=== PATIENT | female | born 1965 | race African-American/Black ===

== ENCOUNTER 2016-06-21 22:10 | Emergency (ER) | payer OTHER ==
[~2016-06-21] VITALS: Ht 139.7 cm; Wt 55.0 kg
[~2016-06-21 22:10] MED LIST: BENT20TA PO; CYCL-36 PO; DICL75 PO; FE T325T PO; IBUP800T23 PO; MULT-65 PO; ONDA4 PO; PRED50 PO
[2016-06-21 22:51] VITALS: BP_SYST 142; PULSE 78; RESP 16; TEMP 98.6; O2SAT 98
[2016-06-21] MEDS ORDERED: CYCL1TAB29 PO (23:22)
[2016-06-21] MEDS ORDERED: MULTTAB67 PO (23:22)
[2016-06-21] MEDS ORDERED: FERR325T PO (23:22)
[2016-06-21] MEDS ORDERED: DICL75TA PO (23:48)
--- NOTE | 2016-06-21 23:56 | PD ---
HPI Chief Complaint: Pain: Acute or Chronic Time Seen by Provider: 23:48 Travel History International Travel<30 days: No Contact w/Intl Traveler<30days: No Traveled to known affect area: No History of Present Illness HPI 51-year-old black female presents to emergency department with complains of left knee pain. She states that she had a injury to her left knee last month. She was seen in the emergency department and had x-rays performed. She was advised that she needed to follow up with her primary care doctor and possibly have further imaging studies to rule out internal derangement. She states that she never followed up. She went out of town and just got back here recently. She still having pain in her left knee presents to the ER. She states the pain is worse with ambulation. Some relief with elevation. Pain is mild-to- moderate. PFSH Past Medical History Hx Anticoagulant Therapy: No Anemia: Yes Arthritis: Yes Asthma: No Blood Disorders: No Bipolar Disorder: Yes Heart Rhythm Problems: No Cancer: No Cardiovascular Problems: No High Cholesterol: No Chemotherapy: No Congestive Heart Failure: No Cerebrovascular Accident: No Diabetes: No Diminished Hearing: No Endocrine: No Gastrointestinal Disorders: Yes GERD: Yes Genitourinary: No Headaches: Yes Hepatitis: No Hiatal Hernia: No Hypertension: No Immune Disorder: No Implanted Vascular Access Dvce: No Kidney Stones: No Musculoskeletal: Yes Neurologic: Yes Psychiatric: No Reproductive: No Respiratory: No Migraines: No Myocardial Infarction: No Radiation Therapy: No Renal Failure: No Seizures: No Ulcer: No Influenza Vaccination: No ?: Not Menopausal: No : 2 Para: 2 Past Surgical History Abdominal Surgery: No AICD: No Appendectomy: No Arteriovenous Shunt: No Cardiac Surgery: No Section: Yes (x2) Cholecystectomy: No Ear Surgery: No Endocrine Surgery: No Eye Surgery: No Genitourinary Surgery: No Gynecologic Surgery: Yes () Hysterectomy: No Insulin Pump: No Joint Replacement: No Neurologic Surgery: No Oral Surgery: No Pacemaker: No Thoracic Surgery: No Tonsillectomy: Yes Other Surgery: No Social History Alcohol Use: Yes (occassionally) Tobacco Use: No Substance Use: No Allergies-Medications (Allergen,Severity, Reaction): Coded Allergies: Penicillin (Verified Allergy, Severe, RASH, 06/21/16) Iodine (Verified Allergy, Intermediate, RASH, 06/21/16) Sulfa (Verified Allergy, Intermediate, RASH, 06/21/16) Promethazine (Verified Adverse Reaction, Severe, Arrhythmias, 06/21/16) 3 PRIOR TRIPS TO ED WITH PALPATATIONS AFTER TAKING MED Codeine (Verified Adverse Reaction, Intermediate, NAUSEA, 06/21/16) Reported Meds & Prescriptions Reported Meds & Active Scripts Active Reported Multiple Vitamin 1 Tab 1 Tab PO DAILY Ferrous Sulfate 325 Mg Tab 325 Mg PO DAILY Flexeril (Cyclobenzaprine HCl) 10 Mg Tab 10 Mg PO TID Review of Systems Except as stated in HPI: all other systems reviewed are Neg Physical Exam Narrative GENERAL: This is a well-nourished, well-developed patient, in no apparent distress. SKIN: No rashes, ecchymoses or lesions. Warm and dry. HEAD: Atraumatic. Normocephalic. EYES: PERRL, EOMI, no discharge or injection. No scleral icterus. EARS: Clear NOSE: Nasal turbinates appear normal. THROAT: Mucosa pink and moist. Airway patent. NECK: Trachea midline. supple, moves head freely. LUNGS: Clear to auscultation. CV: Regular in rhythm. ABDOMEN: Soft nontender. EXT: No clubbing cyanosis or edema. Examination of the left lower extremity reveals mild swelling and inflammatory changes to the knee. There is no anterior posterior draw. There is no gross instability to the medial lateral collateral ligaments. She does complain of pain with testing. Positive meniscal pain with testing. She has intact sensation with good distal pulses. No pain in the hip, ankle or foot. She has no bony tenderness in the right lower extremity as well as upper extremities. Data Data Last Documented VS Vital Signs Date Time Temp Pulse Resp B/P Pulse Ox O2 Delivery O2 Flow Rate FiO2 06/21/16 22:51 98.6 78 16 142/ 98 MDM Medical Decision Making Medical Screen Exam Complete: Yes Emergency Medical Condition: Yes Medical Record Reviewed: Yes Differential Diagnosis MDM: High Differential diagnoses: Fracture, sprain, strain, dislocation, contusion, neurovascular injury Narrative Course I have reviewed the patient's last ER visit as well as her x-ray. There is no acute bony injury. The patient is given another prescription for diclofenac. This is left knee pain Diagnosis Primary Impression: Left knee pain Qualified Code: M25.562 - Chronic pain of left knee Patient Instructions: General Instructions Additional Instructions: Rest. Elevation. Ice for any acute swelling and pain. Medications as directed Follow-up with the clinic this week. Return to the ER if any problems Med/Other Pt SpecificInfo: Prescription(s) given Scripts Diclofenac Sodium DR 75 Mg Tabdr75 Mg PO BID #20 TAB Prov:Mark Anthony Loving MD 06/21/16 Disposition: 01 DISCHARGE HOME Condition: Stable Matias Jay Jun 21, 2016 23:56
[2016-07-05] MEDS ORDERED: FERR325T PO (15:36)
[2016-07-05] MEDS ORDERED: DICL75TA PO (15:36)
[2016-07-05] MEDS ORDERED: CYCL1TAB29 PO (15:36)
[2016-09-06] MEDS ORDERED: KETO60IN6 IM (09:40)
== END 2016-06-22 00:37 | disposition home or self-care (01) ==
LOC: NEPB 22:10
DX: M25.562 Pain in left knee (principal); M19.90 Unspecified osteoarthritis, unspecified site
CPT/HCPCS: 99283

== ENCOUNTER → 2016-07-13 | Outpatient (CLI) | payer OTHER ==
[~2016-07-13] MED LIST changes: -BENT20TA PO; -CYCL-36 PO; +CYCL1TAB29 PO; +CYCL5TAB PO; -DICL75 PO; +DICL75TA PO; -FE T325T PO; +FERR325T PO; -IBUP800T23 PO; +KETO60IN6 IM; -MULT-65 PO; +MULTTAB67 PO; -ONDA4 PO; -PRED50 PO
--- NOTE | 2016-07-13 15:38 | RADRPT ---
EXAM DATE/TIME: 07/13/2016 14:30 [facility] COMPARISON: CT ABDOMEN & PELVIS W CONTRAST, December 07, 2012, 16:06. CT ABDOMEN & PELVIS W/O CONTRAST, July 16, 2015, 20:59. US ABDOMEN - LIVER, May 29, 2013, 10:33. INDICATIONS : Mass, venous malformation. MEDICAL HISTORY : Gastroesophageal reflux disease. Osteoarthritis. Venous malformation in liver, stable since 2005. B ipolar disorder. Anemia. SURGICAL HISTORY : Tonsillectomy. Tubal ligation. section. ENCOUNTER: Subsequent ACUITY: 1 day PAIN SCORE: 0/10 LOCATION: Abdomen. MEASUREMENTS: LIVER: 11.1 cm length COMMON DUCT: 6 mm RIGHT KIDNEY: 9.6 x 4.6 x 5.2 cm SPLEEN: 7.2 cm length FINDINGS: There is stable hemangioma in the dome of the liver unchanged from 2016. This measures 3.3 x 2.3 CM. The gallbladder and visualized portion of the pancreas are unremarkable. No free fluid is identified. CONCLUSION: 1. No evidence of cholelithiasis. 2. Stable hemangioma in the dome of the liver Andrew Ordonez MD on July 13, 2016 at 15:34 Board Certified Radiologist. This report was verified electronically.
== END ==
LOC: HRAD 14:18
PROVIDERS: ATTEND Family Medicine
DX: Q27.9 Congenital malformation of peripheral vascular system, unspecified (principal)
CPT/HCPCS: 76705

== ENCOUNTER → 2016-07-28 | Outpatient (CLI) | payer OTHER ==
[2016-07-28 14:38] LABS: AUTOMATED NEUTROPHIL # 4.3 TH/MM3 (1.8-7.7); BASOPHIL % 0.6 % (0.0-2.0); EOSINOPHIL # 0.3 TH/MM3 (0-0.4); HEMATOCRIT 31.1 % (35.0-46.0); HEMO FLAGS DIFF FINAL; LYMPH % 24.3 % (9.0-44.0); LYMPHOCYTE # 1.7 TH/MM3 (1.0-4.8); MEAN CELL VOLUME 82.7 FL (80.0-100.0); MEAN CORPUSCULAR HEMOGLOBIN 27.3 PG (27.0-34.0); MONO % 8.5 % (0.0-8.0); NEUT % 62.6 % (16.0-70.0); PLATELET COUNT 265 TH/MM3 (150-450); RED BLOOD COUNT 3.76 MIL/MM3 (4.00-5.30); RED CELL DISTRIBUTION WIDTH 19.8 % (11.6-17.2); WHITE BLOOD COUNT 6.9 TH/MM3 (4.0-11.0)
== END ==
LOC: CLAB 14:05
PROVIDERS: ATTEND Family Medicine
DX: N95.0 Postmenopausal bleeding (principal)
CPT/HCPCS: 36415; 85025

== ENCOUNTER 2016-09-04 13:58 | Emergency (ER) | payer OTHER ==
[~2016-09-04] VITALS: Ht 139.7 cm; Wt 56.5 kg
[~2016-09-04 13:58] MED LIST changes: -CYCL5TAB PO; -KETO60IN6 IM
[2016-09-04 13:59] VITALS: BP 137/66; PULSE 78; RESP 20; TEMP 98.1; O2SAT 98
--- NOTE | 2016-09-04 18:35 | PD ---
HPI . chest pain for 3 days Chief Complaint: Chest Pain Time Seen by Provider: 18:35 Travel History International Travel<30 days: No Contact w/Intl Traveler<30days: No Traveled to known affect area: No History of Present Illness HPI 51-year-old female with history of chronic back pain and neck pain here with complaints of chest pain for 3 days. Patient says she has had a sharp pain under her left breast that has been constant for the past 3 days. Patient rates the pain as 9/10 without any radiation elsewhere. She denies lifting any heavy objects or overuse of the left extremity. She denies any nausea, vomiting , diaphoresis or shortness of breath. She has not tried any medications to improve her symptoms. She decided to come to the emergency department for further evaluation. She follows up with Dr. Middleton in the community clinic, however missed her most recent appointment that was scheduled in August. PFSH Past Medical History Hx Anticoagulant Therapy: No Anemia: Yes Arthritis: Yes Asthma: No Blood Disorders: No Bipolar Disorder: Yes Heart Rhythm Problems: No Cancer: No Cardiovascular Problems: No High Cholesterol: No Chemotherapy: No Congestive Heart Failure: No Cerebrovascular Accident: No Diabetes: No Diminished Hearing: No Endocrine: No Gastrointestinal Disorders: Yes GERD: Yes Genitourinary: No Headaches: Yes Hepatitis: No Hiatal Hernia: No Hypertension: No Immune Disorder: No Implanted Vascular Access Dvce: No Kidney Stones: No Musculoskeletal: Yes Neurologic: Yes Psychiatric: No Reproductive: No Respiratory: No Migraines: No Myocardial Infarction: No Radiation Therapy: No Renal Failure: No Seizures: No Ulcer: No ?: Not Menopausal: No : 2 Para: 2 Past Surgical History Abdominal Surgery: No AICD: No Appendectomy: No Arteriovenous Shunt: No Cardiac Surgery: No Section: Yes (x2) Cholecystectomy: No Ear Surgery: No Endocrine Surgery: No Eye Surgery: No Genitourinary Surgery: No Gynecologic Surgery: Yes () Hysterectomy: No Insulin Pump: No Joint Replacement: No Neurologic Surgery: No Oral Surgery: No Pacemaker: No Thoracic Surgery: No Tonsillectomy: Yes Other Surgery: No Family History Family Myocardial Infarction: Yes Family Hypercholesterolemia: Yes Social History Alcohol Use: Yes (occassionally) Tobacco Use: No Substance Use: No Allergies-Medications (Allergen,Severity, Reaction): Coded Allergies: Penicillin (Verified Allergy, Severe, RASH, 09/04/16) Iodine (Verified Allergy, Intermediate, RASH, 09/04/16) Sulfa (Verified Allergy, Intermediate, RASH, 09/04/16) Promethazine (Verified Adverse Reaction, Severe, Arrhythmias, 09/04/16) 3 PRIOR TRIPS TO ED WITH PALPATATIONS AFTER TAKING MED Codeine (Verified Adverse Reaction, Intermediate, NAUSEA, 09/04/16) Reported Meds & Prescriptions Reported Meds & Active Scripts Active Ferrous Sulfate 325 Mg Tab 325 Mg PO DAILY Reported Multiple Vitamin 1 Tab 1 Tab PO DAILY Review of Systems General / Constitutional: No: Fever Eyes: No: Visual changes HENT: No: Headaches Cardiovascular: Positive: Chest Pain or Discomfort Respiratory: No: Shortness of Breath Gastrointestinal: No: Abdominal Pain Genitourinary: No: Dysuria Musculoskeletal: No: Pain Skin: No Rash Neurologic: No: Weakness Psychiatric: No: Depression Endocrine: No: Polydipsia Hematologic/Lymphatic: No: Easy Bruising Physical Exam Narrative GENERAL: AAO x 3, no acute distress, Well-nourished, well-developed patient. SKIN: Warm and dry. No visible rashes or bruising. HEAD: Normocephalic and atraumatic. EYES: No scleral icterus. No injection or drainage. ENT: No nasal drainage noted. Mucous membranes pink. Airway patent. NECK: Supple, trachea midline. No JVD. CARDIOVASCULAR: Regular rate and rhythm without murmurs, gallops, or rubs. RESPIRATORY: Breath sounds equal bilaterally. No accessory muscle use. No rhonchi or rales. Reproducible chest pain under left breast with palpation. GASTROINTESTINAL: Abdomen soft, non-tender, nondistended. EXTREMITIES: No cyanosis or edema. BACK: Nontender without obvious deformity. No CVA tenderness. PSYCH: AAO x 3, normal affect. Data Data Last Documented VS Vital Signs Date Time Temp Pulse Resp B/P Pulse Ox O2 Delivery O2 Flow Rate FiO2 09/04/16 19:42 68 17 111/57 100 Room Air 09/04/16 13:59 98.1 Orders Electrocardiogram (09/04/16 ) Electrocardiogram (09/04/16 18:43) Basic Metabolic Panel (Bmp) (09/04/16 18:43) Ckmb (Isoenzyme) Profile (09/04/16 18:43) Complete Blood Count With Diff (09/04/16 18:43) Magnesium (Mg) (09/04/16 18:43) Prothrombin Time / Inr (Pt) (09/04/16 18:43) Act Partial Throm Time (Ptt) (09/04/16 18:43) Troponin I (09/04/16 18:43) Chest, Single Ap (09/04/16 18:43) Ecg Monitoring (09/04/16 18:43) Bilateral Bp Monitoring (09/04/16 18:43) Iv Access Insert/Monitor (09/04/16 18:43) Oximetry (09/04/16 18:43) Oxygen Administration (09/04/16 18:43) Sodium Chloride 0.9% Flush (Ns Flush) (09/04/16 18:45) CKMB (09/04/16 20:06) CKMB% (09/04/16 20:06) Labs Laboratory Tests Test 09/04/16 09/04/16 18:19 20:06 White Blood Count 12.7 TH/MM3 Red Blood Count 3.96 MIL/MM3 Hemoglobin 11.0 GM/DL Hematocrit 32.9 % Mean Corpuscular Volume 83.1 FL Mean Corpuscular Hemoglobin 27.8 PG Mean Corpuscular Hemoglobin 33.5 % Concent Red Cell Distribution Width 19.2 % Platelet Count 252 TH/MM3 Mean Platelet Volume 9.2 FL Neutrophils (%) (Auto) 69.4 % Lymphocytes (%) (Auto) 20.2 % Monocytes (%) (Auto) 7.1 % Eosinophils (%) (Auto) 2.7 % Basophils (%) (Auto) 0.6 % Neutrophils # (Auto) 8.8 TH/MM3 Lymphocytes # (Auto) 2.6 TH/MM3 Monocytes # (Auto) 0.9 TH/MM3 Eosinophils # (Auto) 0.3 TH/MM3 Basophils # (Auto) 0.1 TH/MM3 CBC Comment DIFF FINAL Differential Comment Prothrombin Time 10.7 SEC Prothromb Time International 1.0 RATIO Ratio Activated Partial 24.7 SEC Thromboplast Time Sodium Level 137 MEQ/L Potassium Level 5.2 MEQ/L Chloride Level 103 MEQ/L Carbon Dioxide Level 24.2 MEQ/L Anion Gap 10 MEQ/L Blood Urea Nitrogen 10 MG/DL Creatinine 0.58 MG/DL Estimat Glomerular Filtration 133 ML/MIN Rate Random Glucose 74 MG/DL Calcium Level 9.9 MG/DL Magnesium Level 1.7 MG/DL Total Creatine Kinase 186 U/L Creatine Kinase MB LESS THAN 0.5 NG/ML Troponin I LESS THAN 0.02 NG/ML MDM Medical Decision Making Medical Screen Exam Complete: Yes Emergency Medical Condition: Yes Medical Record Reviewed: Yes Differential Diagnosis musculoskeletal pain, R/O ACS, Narrative Course 51-year-old female with history of chronic back pain and neck pain here with complaints of chest pain for 3 days. Patient says she has had a sharp pain under her left breast that has been constant for the past 3 days. Patient rates the pain as 9/10 without any radiation elsewhere. She denies lifting any heavy objects or overuse of the left extremity. She denies any nausea, vomiting , diaphoresis or shortness of breath. She has not tried any medications to improve her symptoms. She decided to come to the emergency department for further evaluation. She follows up with Dr. Middleton in the community clinic, however missed her most recent appointment that was scheduled in August. Patient seen and examined. Case discussed with Dr. Dutton. Recommend ACS R/O although I feel this is muscular in nature. EKG with Sinus parminder. Last 24 hours Impressions Chest X-Ray 09/04/16 6903 Signed Impressions: Service Date/Time: Sunday, September 04, 2016 18:59 - CONCLUSION: 1. No acute findings. [id number] dextroscoliosis. Matias Schneider MD Laboratory Tests Test 09/04/16 09/04/16 18:19 20:06 White Blood Count 12.7 TH/MM3 Red Blood Count 3.96 MIL/MM3 Hemoglobin 11.0 GM/DL Hematocrit 32.9 % Mean Corpuscular Volume 83.1 FL Mean Corpuscular Hemoglobin 27.8 PG Mean Corpuscular Hemoglobin 33.5 % Concent Red Cell Distribution Width 19.2 % Platelet Count 252 TH/MM3 Mean Platelet Volume 9.2 FL Neutrophils (%) (Auto) 69.4 % Lymphocytes (%) (Auto) 20.2 % Monocytes (%) (Auto) 7.1 % Eosinophils (%) (Auto) 2.7 % Basophils (%) (Auto) 0.6 % Neutrophils # (Auto) 8.8 TH/MM3 Lymphocytes # (Auto) 2.6 TH/MM3 Monocytes # (Auto) 0.9 TH/MM3 Eosinophils # (Auto) 0.3 TH/MM3 Basophils # (Auto) 0.1 TH/MM3 CBC Comment DIFF FINAL Differential Comment Prothrombin Time 10.7 SEC Prothromb Time International 1.0 RATIO Ratio Activated Partial 24.7 SEC Thromboplast Time Sodium Level 137 MEQ/L Potassium Level 5.2 MEQ/L Chloride Level 103 MEQ/L Carbon Dioxide Level 24.2 MEQ/L Anion Gap 10 MEQ/L Blood Urea Nitrogen 10 MG/DL Creatinine 0.58 MG/DL Estimat Glomerular Filtration 133 ML/MIN Rate Random Glucose 74 MG/DL Calcium Level 9.9 MG/DL Magnesium Level 1.7 MG/DL Total Creatine Kinase 186 U/L Creatine Kinase MB LESS THAN 0.5 NG/ML Troponin I LESS THAN 0.02 NG/ML Discussed with patient that she will need to f/u with Dr. Middleton this week. She will need repeat CBC for elevated WBC. Will discharge home with a short course of muscle relaxers to see if they help her symptoms. Advised if condition worsens, to go to nearest ER. Patient verbalized understanding of instructions and thanked me for her care. Diagnosis Primary Impression: Chest pain Qualified Code: R07.9 - Chest pain, unspecified type Additional Impression: Muscle strain Patient Instructions: Chest Pain (ED), General Instructions, Muscle Strain (ED) Additional Instructions: Please follow up with Dr. Middleton this week. She will need to repeat your blood tests. I have provided you with muscle relaxers as it seems your pain in more muscular in nature. Muscle relaxers can cause drowsiness. Please do not drive, swim or operate heavy machinery while using these medicines. Take ibuprofen as needed for pain. Med/Other Pt SpecificInfo: Prescription(s) given Scripts Cyclobenzaprine (Flexeril)5 Mg Tab5 Mg PO TID #20 TAB Ref 0 Prov:Tyson Bean MD 09/04/16 Disposition: 01 DISCHARGE HOME Condition: Stable CompaMira PA Sep 04, 2016 18:35
[2016-09-04] MEDS ORDERED: SODIUM CHLORIDE 0.9% FLUSH 10 ML FLUSH IVF PRN (18:45)
[2016-09-04 19:38] VITALS: O2SAT 100
--- NOTE | 2016-09-04 19:39 | RADRPT ---
EXAM DATE/TIME: 09/04/2016 18:59 [facility] COMPARISON: CHEST SINGLE AP, August 06, 2015, 13:24. INDICATIONS : Chest pain. MEDICAL HISTORY : None. SURGICAL HISTORY : None. ENCOUNTER: Initial ACUITY: 3 days PAIN SCORE: 5/10 LOCATION: Bilateral chest FINDINGS: A single view of the chest demonstrates the lungs to be symmetrically aerated without evidence of mas s, infiltrate or effusion. The cardiomediastinal contours are unremarkable. Osseous structures are intact with scoliosis. CONCLUSION: 1. No acute findings. [id number] dextroscoliosis. Matias Schneider MD on September 04, 2016 at 19:37 Board Certified Radiologist. This report was verified electronically.
[2016-09-04 19:42] VITALS: BP 111/57; PULSE 68; RESP 17; O2SAT 100
[2016-09-04 19:42] LABS: AUTOMATED NEUTROPHIL # 8.8 TH/MM3 (1.8-7.7); BASOPHIL # 0.1 TH/MM3 (0-0.2); BASOPHIL % 0.6 % (0.0-2.0); EOSINOPHIL # 0.3 TH/MM3 (0-0.4); EOSINOPHIL % 2.7 % (0.0-4.0); HEMATOCRIT 32.9 % (35.0-46.0); HEMO FLAGS DIFF FINAL; LYMPH % 20.2 % (9.0-44.0); LYMPHOCYTE # 2.6 TH/MM3 (1.0-4.8); MEAN CELL VOLUME 83.1 FL (80.0-100.0); MEAN CORPUSCULAR HEMOGLOBIN 27.8 PG (27.0-34.0); MEAN CORPUSCULAR HGB CONC 33.5 % (32.0-36.0); MONO % 7.1 % (0.0-8.0); NEUT % 69.4 % (16.0-70.0); PLATELET COUNT 252 TH/MM3 (150-450); RED BLOOD COUNT 3.96 MIL/MM3 (4.00-5.30); RED CELL DISTRIBUTION WIDTH 19.2 % (11.6-17.2); WHITE BLOOD COUNT 12.7 TH/MM3 (4.0-11.0)
[2016-09-04 19:58] LABS: APTT (PATIENT) 24.7 SEC (24.3-30.1); PROTHROMBIN TIME - PATIENT 10.7 SEC (9.8-11.6)
[2016-09-04 21:01] LABS: BLOOD UREA NITROGEN 10 MG/DL (7-18); CHLORIDE 103 MEQ/L (98-107); GLOMERULAR FILTRATION RATE 133 ML/MIN (>89); MAGNESIUM 1.7 MG/DL (1.5-2.5); SODIUM (NA) 137 MEQ/L (136-145)
[2016-09-04 21:03] LABS: CREATINE KINASE 186 U/L (26-192)
[2016-09-04 21:06] LABS: ANION GAP 10 MEQ/L (5-15); BICARBONATE 24.2 MEQ/L (21.0-32.0); POTASSIUM 5.2 MEQ/L (3.5-5.1)
[2016-09-04 21:15] LABS: CKMB LESS THAN 0.5 NG/ML (0.5-3.6)
[2016-09-04] MEDS ORDERED: CYCL5TAB PO (21:34)
--- NOTE | 2016-09-05 18:27 | EKG ---
Date Performed: 09/04/2016 Time Performed: 14:43:50 PTAGE: 51 years EKG: SINUS BRADYCARDIA NONSPECIFIC T-WAVE ABNORMALITY T wave abnormalities are more prominant th an prior tracing. Clinical corrolation is suggested. BORDERLINE ECG PREVIOUS TRACING : 09/22/2013 22.42 DOCTOR: Scott Armas Interpretating Date/Time 09/05/2016 18:25:17
[2016-09-06] MEDS ORDERED: KETO60IN6 IM (09:40)
== END 2016-09-04 22:09 | disposition home or self-care (01) ==
LOC: NEPC 13:58
DX: R07.9 Chest pain, unspecified (principal); S29.011A Strain of muscle and tendon of front wall of thorax, initial encounter; R94.31 Abnormal electrocardiogram [ECG] [EKG]; Z87.39 Personal history of other diseases of the musculoskeletal system and connective tissue; Z86.2 Personal history of diseases of the blood and blood-forming organs and certain disorders involving the immune mechanism; Z86.59 Personal history of other mental and behavioral disorders; Z87.19 Personal history of other diseases of the digestive system; Z86.69 Personal history of other diseases of the nervous system and sense organs; X58.XXXA Exposure to other specified factors, initial encounter
CPT/HCPCS: 71010; 80048; 82550; 82552; 83735; 84484; 85025; 85610; 85730; 93005

== ENCOUNTER → 2016-09-06 | Outpatient (CLI) | payer OTHER ==
[~2016-09-06] MED LIST changes: -CYCL1TAB29 PO; +CYCL5TAB PO; -DICL75TA PO; +KETO60IN6 IM
[2016-09-06 10:46] LABS: BASOPHIL % 0.5 % (0.0-2.0); EOSINOPHIL # 0.3 TH/MM3 (0-0.4); HEMATOCRIT 33.2 % (35.0-46.0); HEMO FLAGS DIFF FINAL; LYMPH % 14.9 % (9.0-44.0); LYMPHOCYTE # 1.6 TH/MM3 (1.0-4.8); MEAN CELL VOLUME 84.4 FL (80.0-100.0); MEAN CORPUSCULAR HEMOGLOBIN 27.1 PG (27.0-34.0); MEAN CORPUSCULAR HGB CONC 32.1 % (32.0-36.0); MONO % 8.8 % (0.0-8.0); NEUT % 72.8 % (16.0-70.0); PLATELET COUNT 243 TH/MM3 (150-450); RED BLOOD COUNT 3.94 MIL/MM3 (4.00-5.30); RED CELL DISTRIBUTION WIDTH 19.1 % (11.6-17.2); WHITE BLOOD COUNT 10.9 TH/MM3 (4.0-11.0)
[2016-09-06 10:56] LABS: BLOOD, URINE NEG (NEG); COMMENT (UR) CULT NOT INDICATED; CULTURE IF INDICATED CULT NOT INDICATED; GLUCOSE,URINE NEG (NEG); KETONE, URINE NEG (NEG); MUCUS URINE FEW /lpf (OCC); NITRITE,URINE NEG (NEG); SQUAMOUS EPITHELIAL CELL URINE 2 /hpf (0-5); URINE COLOR YELLOW (YELLW/STRAW)
== END ==
LOC: CLAB 10:19
PROVIDERS: ATTEND Family Medicine
DX: D72.829 Elevated white blood cell count, unspecified (principal); R07.9 Chest pain, unspecified
CPT/HCPCS: 36415; 81001; 85025

== ENCOUNTER 2016-10-29 12:37 | Emergency (ER) | payer OTHER ==
[~2016-10-29] VITALS: Ht 142.2 cm; Wt 57.0 kg
[~2016-10-29 12:37] MED LIST changes: -CYCL5TAB PO; -FERR325T PO; -KETO60IN6 IM
[2016-10-29 12:39] VITALS: BP 150/83; PULSE 90; RESP 20; TEMP 99.1; O2SAT 98
--- NOTE | 2016-10-29 13:04 | PD ---
HPI . chronic neck and back pain Chief Complaint: Back/ Neck Pain or Injury Time Seen by Provider: 13:04 Travel History International Travel<30 days: No Contact w/Intl Traveler<30days: No Traveled to known affect area: No History of Present Illness HPI This is a 51-year-old female with chronic neck and back pain. Patient is well- known to me from [facility]. She was previously my patient there and I've seen her on several occasions. Patient has a long- standing history of chronic back pain and neck pain. Of note she has records of radiology reports dating back to 2007 as well as 2009 stating that she has spondylolisthesis of the lower spine, degenerative disc disease of the cervical spine etc. She is here requesting pain medications for her chronic neck and back pain. She is a patient in the [facility] clinic. Unfortunately [facility] is unable to prescribe narcotic pain medication and she was hoping that we would be able to give her something for her pain. The is the same pain she has always had. There is no recent injury. PFSH Past Medical History Hx Anticoagulant Therapy: No Anemia: Yes Arthritis: Yes Asthma: No Blood Disorders: No Bipolar Disorder: Yes Heart Rhythm Problems: No Cancer: No Cardiovascular Problems: No High Cholesterol: No Chemotherapy: No Congestive Heart Failure: No Cerebrovascular Accident: No Diabetes: No Diminished Hearing: No Endocrine: No Gastrointestinal Disorders: Yes GERD: Yes Genitourinary: No Headaches: Yes Hepatitis: No Hiatal Hernia: No Hypertension: No Immune Disorder: No Implanted Vascular Access Dvce: No Kidney Stones: No Musculoskeletal: Yes Neurologic: Yes Psychiatric: No Reproductive: No Respiratory: No Migraines: No Myocardial Infarction: No Radiation Therapy: No Renal Failure: No Seizures: No Ulcer: No ?: Not LMP: 10/27/16 Menopausal: No : 2 Para: 2 Past Surgical History Abdominal Surgery: No AICD: No Appendectomy: No Arteriovenous Shunt: No Cardiac Surgery: No Section: Yes (x2) Cholecystectomy: No Ear Surgery: No Endocrine Surgery: No Eye Surgery: No Genitourinary Surgery: No Gynecologic Surgery: Yes () Hysterectomy: No Insulin Pump: No Joint Replacement: No Neurologic Surgery: No Oral Surgery: No Pacemaker: No Thoracic Surgery: No Tonsillectomy: Yes Other Surgery: No Family History Family Hypercholesterolemia: Yes Social History Alcohol Use: Yes (occassionally) Tobacco Use: No Substance Use: No Allergies-Medications (Allergen,Severity, Reaction): Coded Allergies: Penicillin (Verified Allergy, Severe, RASH, 10/18/16) Iodine (Verified Allergy, Intermediate, RASH, 10/18/16) Sulfa (Verified Allergy, Intermediate, RASH, 10/18/16) Flexeril (Verified Allergy, Mild, dizzy, 10/18/16) Promethazine (Verified Adverse Reaction, Severe, Arrhythmias, 10/18/16) 3 PRIOR TRIPS TO ED WITH PALPATATIONS AFTER TAKING MED Codeine (Verified Adverse Reaction, Intermediate, NAUSEA, 10/18/16) Reported Meds & Prescriptions Reported Meds & Active Scripts Active Reported Multiple Vitamin 1 Tab 1 Tab PO DAILY Review of Systems General / Constitutional: No: Fever Eyes: No: Visual changes HENT: No: Headaches Cardiovascular: No: Chest Pain or Discomfort Respiratory: No: Shortness of Breath Gastrointestinal: No: Abdominal Pain Genitourinary: No: Dysuria Musculoskeletal: Positive: Pain (neck and back pain) Skin: No Rash Neurologic: No: Weakness Psychiatric: No: Depression Endocrine: No: Polydipsia Hematologic/Lymphatic: No: Easy Bruising Physical Exam Narrative GENERAL: AAO x 3, no acute distress, Well-nourished, well-developed patient. SKIN: Warm and dry. No visible rashes or bruising. HEAD: Normocephalic and atraumatic. EYES: No scleral icterus. No injection or drainage. ENT: No nasal drainage noted. Mucous membranes pink. Airway patent. NECK: Supple, trachea midline. No JVD. No c spine process tenderness. CARDIOVASCULAR: Regular rate and rhythm without murmurs, gallops, or rubs. RESPIRATORY: Breath sounds equal bilaterally. No accessory muscle use. No rhonchi or rales. GASTROINTESTINAL: Abdomen soft, non-tender, nondistended. EXTREMITIES: No cyanosis or edema. BACK: Nontender without obvious deformity. No CVA tenderness. no spinal process tenderness. No paraspinal tenderness. FULL ROM b/l UE and LE. PSYCH: AAO x 3, normal affect. Data Data Last Documented VS Vital Signs Date Time Temp Pulse Resp B/P Pulse Ox O2 Delivery O2 Flow Rate FiO2 10/29/16 12:39 99.1 90 20 150/83 98 Room Air MDM Medical Decision Making Medical Screen Exam Complete: Yes Emergency Medical Condition: No Medical Record Reviewed: Yes Differential Diagnosis chronic neck and back pain, spondylolisthesis of L spine, drug seeking behavior Narrative Course This is a 51-year-old patient who is very well-known to me from the community clinic presenting with chronic complaints of neck and back pain. She is here requesting something stronger for pain. I've advised the patient that she will need to follow-up at Dr. Middleton. A medical screening exam was performed: At the time of evaluation the presenting medical condition was determined not to be of an emergent nature. The patient was given the option of receiving additional care, but declined. Patient was given options for additional community resources from which to obtain care. The Patient Has Been advised to seek medical attention for their presenting complaint. The patient has been advised to return to the ER at any time if an emergent condition develops. Diagnosis Primary Impression: Encounter for medical screening examination Condition: Stable Mira Chatman October 29, 2016 13:04
[2016-10-29] MEDS ORDERED: MIDAZOLAM HCL 5 MG/ML VIAL (1 ML) ONE (13:18)
== END 2016-10-29 13:21 | disposition left against medical advice (07) ==
LOC: NEPK 12:37
DX: M54.2 Cervicalgia (principal); G89.29 Other chronic pain
CPT/HCPCS: 99281; J2250

== ENCOUNTER 2017-02-23 11:38 | Emergency (ER) | payer OTHER ==
[~2017-02-23] VITALS: Ht 139.7 cm; Wt 58.0 kg
[2017-02-23 11:39] VITALS: BP 174/88; PULSE 76; RESP 20; TEMP 98.4; O2SAT 98
[2017-02-23 11:57] VITALS: BP 156/84; PULSE 72; RESP 21; O2SAT 94
[2017-02-23] MEDS ORDERED: SODIUM CHLOR 0.9% 1000 ML INJ 1,000 ML IV SCH (12:13)
--- NOTE | 2017-02-23 12:13 | PD ---
HPI Chief Complaint: Flank/Kidney Pain Time Seen by Provider: 12:11 Travel History International Travel<30 days: No Contact w/Intl Traveler<30days: No Traveled to known affect area: No History of Present Illness HPI 52 YO F presents to the ED for evaluation of 2 day history 02/19, constant left- sided abdominal and flank pain. Patient states the pain came on suddenly. No alleviating or exacerbating factors reported. She endorses mild nausea. She endorses loose stools over the last 3 or 4 days. She denies fever, chills, vomiting, dysuria, hematuria, vaginal discharge, vaginal odor. She does not take any medications. PFSH Past Medical History Hx Anticoagulant Therapy: No Anemia: Yes Arthritis: Yes Asthma: No Blood Disorders: No Bipolar Disorder: Yes Heart Rhythm Problems: No Cancer: No Cardiovascular Problems: No High Cholesterol: No Chemotherapy: No Congestive Heart Failure: No Cerebrovascular Accident: No Diabetes: No Diminished Hearing: No Endocrine: No Gastrointestinal Disorders: Yes GERD: Yes Genitourinary: No Headaches: Yes Hepatitis: No Hiatal Hernia: No Hypertension: No Immune Disorder: No Implanted Vascular Access Dvce: No Kidney Stones: No Musculoskeletal: Yes Neurologic: Yes Psychiatric: No Reproductive: No Respiratory: No Migraines: No Myocardial Infarction: No Radiation Therapy: No Renal Failure: No Seizures: No Ulcer: No ?: Not LMP: 02/11/17 Menopausal: No : 2 Para: 2 Past Surgical History Abdominal Surgery: No AICD: No Appendectomy: No Arteriovenous Shunt: No Cardiac Surgery: No Section: Yes (x2) Cholecystectomy: No Ear Surgery: No Endocrine Surgery: No Eye Surgery: No Genitourinary Surgery: No Gynecologic Surgery: Yes () Hysterectomy: No Insulin Pump: No Joint Replacement: No Neurologic Surgery: No Oral Surgery: No Pacemaker: No Thoracic Surgery: No Tonsillectomy: Yes Other Surgery: No Family History Family Hypercholesterolemia: Yes Social History Alcohol Use: Yes (occassionally) Tobacco Use: No Substance Use: No Allergies-Medications (Allergen,Severity, Reaction): Coded Allergies: penicillin G (Unverified Allergy, Severe, RASH, 02/23/17) Sulfa (Sulfonamide Antibiotics) (Unverified Allergy, Intermediate, RASH, ) iodine (Unverified Allergy, Intermediate, RASH, 02/23/17) potassium iodide (Unverified Allergy, Intermediate, RASH, 02/23/17) povidone-iodine (Unverified Allergy, Intermediate, RASH, 02/23/17) sodium iodide (Unverified Allergy, Intermediate, RASH, 02/23/17) sodium iodide (Unverified Allergy, Intermediate, RASH, 02/23/17) cyclobenzaprine (Unverified Allergy, Mild, dizzy, 02/23/17) promethazine (Unverified Adverse Reaction, Severe, Arrhythmias, 02/23/17) 3 PRIOR TRIPS TO ED WITH PALPATATIONS AFTER TAKING MED codeine (Unverified Adverse Reaction, Intermediate, NAUSEA, 02/23/17) Reported Meds & Prescriptions Reported Meds & Active Scripts Active Reported Multiple Vitamin 1 Tab 1 Tab PO DAILY Review of Systems Except as stated in HPI: all other systems reviewed are Neg Physical Exam Narrative GENERAL: Well-nourished, well-developed petite black female in no acute distress. SKIN: Focused skin assessment warm/dry. HEAD: Normocephalic. EYES: No scleral icterus. No injection or drainage. NECK: Supple, trachea midline. No JVD or lymphadenopathy. CARDIOVASCULAR: Regular rate and rhythm without murmurs, gallops, or rubs. RESPIRATORY: Breath sounds equal bilaterally. No accessory muscle use. GASTROINTESTINAL: Abdomen soft, nondistended. ++ Tender to palpation in the left upper and lower quadrants, left flank. Active bowel sounds. No palpable masses. MUSCULOSKELETAL: No cyanosis, or edema. BACK: Nontender without obvious deformity. + Left-sided CVA tenderness. Data Data Last Documented VS Vital Signs Date Time Temp Pulse Resp B/P (MAP) Pulse Ox O2 Delivery O2 Flow Rate FiO2 02/23/17 11:57 72 21 156/84 (108) 94 Room Air 02/23/17 11:39 98.4 Orders Orders Urinalysis - C+S If Indicated (02/23/17 11:53) Ed Urine Pregnancytest Poc (02/23/17 11:53) Complete Blood Count With Diff (02/23/17 12:13) Comprehensive Metabolic Panel (02/23/17 12:13) Lipase (02/23/17 12:13) Lactic Acid (02/23/17 12:13) Iv Access Insert/Monitor (02/23/17 12:13) Ecg Monitoring (02/23/17 12:13) Oximetry (02/23/17 12:13) Morphine Inj (Morphine Inj) (02/23/17 12:15) Ondansetron Inj (Zofran Inj) (02/23/17 12:15) Sodium Chlor 0.9% 1000 Ml Inj (Ns 1000 M (02/23/17 12:13) Sodium Chloride 0.9% Flush (Ns Flush) (02/23/17 12:15) Ct Abd/Pel W/O Iv Contrast (02/23/17 13:42) Morphine Inj (Morphine Inj) (02/23/17 13:45) Morphine Inj (Morphine Inj) (02/23/17 14:15) Labs Laboratory Tests Test 02/23/17 12:20 02/23/17 13:05 White Blood Count 7.3 TH/MM3 Red Blood Count 4.04 MIL/MM3 Hemoglobin 10.7 GM/DL Hematocrit 33.6 % Mean Corpuscular Volume 83.1 FL Mean Corpuscular Hemoglobin 26.6 PG Mean Corpuscular Hemoglobin Concent 32.0 % Red Cell Distribution Width 19.8 % Platelet Count 277 TH/MM3 Mean Platelet Volume 7.9 FL Neutrophils (%) (Auto) 69.2 % Lymphocytes (%) (Auto) 17.0 % Monocytes (%) (Auto) 9.8 % Eosinophils (%) (Auto) 3.7 % Basophils (%) (Auto) 0.3 % Neutrophils # (Auto) 5.1 TH/MM3 Lymphocytes # (Auto) 1.2 TH/MM3 Monocytes # (Auto) 0.7 TH/MM3 Eosinophils # (Auto) 0.3 TH/MM3 Basophils # (Auto) 0.0 TH/MM3 CBC Comment DIFF FINAL Differential Comment Blood Urea Nitrogen 7 MG/DL Creatinine 0.70 MG/DL Random Glucose 93 MG/DL Total Protein 7.3 GM/DL Albumin 3.6 GM/DL Calcium Level 9.4 MG/DL Alkaline Phosphatase 113 U/L Aspartate Amino Transf (AST/SGOT) 37 U/L Alanine Aminotransferase (ALT/SGPT) 19 U/L Total Bilirubin 1.5 MG/DL Sodium Level 140 MEQ/L Potassium Level 3.9 MEQ/L Chloride Level 107 MEQ/L Carbon Dioxide Level 27.2 MEQ/L Anion Gap 6 MEQ/L Estimat Glomerular Filtration Rate 106 ML/MIN Lactic Acid Level 1.0 mmol/L Lipase 108 U/L Urine Color YELLOW Urine Turbidity CLEAR Urine pH 6.5 Urine Specific [place] 1.009 Urine Protein NEG mg/dL Urine Glucose (UA) NEG mg/dL Urine Ketones NEG mg/dL Urine Occult Blood NEG Urine Nitrite NEG Urine Bilirubin NEG Urine Urobilinogen 2.0 MG/DL Urine Leukocyte Esterase NEG Urine RBC LESS THAN 1 /hpf Urine WBC 1 /hpf Urine Squamous Epithelial Cells <1 /hpf Microscopic Urinalysis Comment CULT NOT INDICATED MDM Medical Decision Making Medical Screen Exam Complete: Yes Emergency Medical Condition: Yes Differential Diagnosis Cystitis versus pyelonephritis versus nephroureterolithiasis versus diverticulitis versus pancreatitis versus STI versus other Narrative Course 52 YO F presents to the ED for evaluation of 2 day history 9/10, constant left- sided abdominal and flank pain. Patient states the pain came on suddenly. No alleviating or exacerbating factors reported. She endorses mild nausea. She endorses loose stools over the last 3 or 4 days. She denies fever, chills, vomiting, dysuria, hematuria, vaginal discharge, vaginal odor. Vitals reviewed. Physical exam reveals a black female in no acute distress. She does have diffuse tenderness in the left quadrants as well as the left flank. There is some voluntary guarding. Patient was administered 1 L normal saline, 4 mg Zofran and 4 mg morphine IV. ED urine test negative. CBC, CMP are unremarkable. Lipase within normal limits. No culture indicated of the UA. CT with no acute intra-abdominal or abdominal findings. Review of the record reveals the patient has had multiple visits with the same complaint. I suspect this may be malingering. She is instructed to follow-up with her primary care provider and/or product development specialist for evaluation of her chronic abdominal pain. She is provided with information for the [facility]. She is stable and discharged home. Diagnosis Primary Impression: Chronic abdominal pain Referrals: [facility] Additional Instructions: Follow-up with your primary care provider with a product development specialist for further evaluation of your tonic abdominal pain. Return to the ED for any urgent or emergent medical condition. Disposition: 01 DISCHARGE HOME Condition: Stable Colleen Astorga Feb 23, 2017 12:12
[2017-02-23] MEDS ORDERED: MORPHINE SULFATE 4 MG/ML INJ IV PUSH ONE ×2 (12:15→14:15)
[2017-02-23] MEDS ORDERED: SODIUM CHLORIDE 0.9% FLUSH 10 ML FLUSH IV FLUSH PRN (12:15)
[2017-02-23] MEDS ORDERED: ONDANSETRON HCL 4 MG/2 ML VIAL IVP ONE (12:15)
[2017-02-23 12:52] LABS: AUTOMATED NEUTROPHIL # 5.1 TH/MM3 (1.8-7.7); BASOPHIL % 0.3 % (0.0-2.0); EOSINOPHIL # 0.3 TH/MM3 (0-0.4); EOSINOPHIL % 3.7 % (0.0-4.0); HEMATOCRIT 33.6 % (35.0-46.0); HEMO FLAGS DIFF FINAL; LYMPHOCYTE # 1.2 TH/MM3 (1.0-4.8); MEAN CELL VOLUME 83.1 FL (80.0-100.0); MEAN CORPUSCULAR HEMOGLOBIN 26.6 PG (27.0-34.0); MONO % 9.8 % (0.0-8.0); NEUT % 69.2 % (16.0-70.0); PLATELET COUNT 277 TH/MM3 (150-450); RED BLOOD COUNT 4.04 MIL/MM3 (4.00-5.30); RED CELL DISTRIBUTION WIDTH 19.8 % (11.6-17.2); WHITE BLOOD COUNT 7.3 TH/MM3 (4.0-11.0)
[2017-02-23 13:30] LABS: ALT (GPT) 19 U/L (10-53); ANION GAP 6 MEQ/L (5-15); AST (GOT) 37 U/L (15-37); BICARBONATE 27.2 MEQ/L (21.0-32.0); BLOOD UREA NITROGEN 7 MG/DL (7-18); CHLORIDE 107 MEQ/L (98-107); GLOMERULAR FILTRATION RATE 106 ML/MIN (>89); SODIUM (NA) 140 MEQ/L (136-145)
[2017-02-23 13:31] LABS: POTASSIUM 3.9 MEQ/L (3.5-5.1)
[2017-02-23 13:32] LABS: ALKALINE PHOSPHATASE 113 U/L (45-117); TOTAL BILIRUBIN ADULT 1.5 MG/DL (0.2-1.0)
[2017-02-23 13:40] LABS: BLOOD, URINE NEG (NEG); GLUCOSE,URINE NEG (NEG); KETONE, URINE NEG (NEG); NITRITE,URINE NEG (NEG); PH, URINE 6.5 (5.0-8.5); SQUAMOUS EPITHELIAL CELL URINE <1 /hpf (0-5); URINE COLOR YELLOW (YELLW/STRAW)
[2017-02-23 13:41] LABS: COMMENT (UR) CULT NOT INDICATED; CULTURE IF INDICATED CULT NOT INDICATED
[2017-02-23] MEDS ORDERED: MORPHINE SULFATE 2 MG/ML INJ IV PUSH ONE (13:45)
--- NOTE | 2017-02-23 14:50 | RADRPT ---
EXAM DATE/TIME: 02/23/2017 14:26 [place] COMPARISON: No previous studies available for comparison. INDICATIONS : Abdominal pain. ORAL CONTRAST: No oral contrast ingested. RADIATION DOSE: 5.07 CTDIvol (mGy) MEDICAL HISTORY : None SURGICAL HISTORY : Tubal ligation. ENCOUNTER: Initial ACUITY: 2 days PAIN SCALE: 6/10 LOCATION: Left lateral TECHNIQUE: Volumetric scanning of the abdomen and pelvis was performed. Using automated exposure control and adjustment of the mA and/or kV according to patient size, radiation dose was kept as low as reasonably achievable to obtain optimal diagnostic quality images. DICOM format image data is av ailable electronically for review and comparison. FINDINGS: CT scan of the abdomen and pelvis was performed without contrast. There again is the i ll-defined hypodensity in the dome. The rest of the liver is unremarkable. The gallbladder, spleen, and pancreas are unremarkable. Both kidneys are unremarkable without evidence of hydronephrosis or o bstruction. No visible stone is seen. The adrenal glands are unremarkable. The pelvis is unremarka ble. The uterus is anteverted. Lung bases are clear. Degenerative changes arthritis lower lumbar s pine. CONCLUSION: Unremarkable CT scan of the abdomen and pelvis. Ill-defined hypodensity in the dome of the liver unchanged since July 2015 exam. Boom Rubin MD on February 23, 2017 at 14:42 Board Certified Radiologist. This report was verified electronically.
[2017-02-23 15:25] VITALS: BP 143/82; PULSE 70; RESP 20; O2SAT 94
== END 2017-02-23 15:25 | disposition home or self-care (01) ==
LOC: NEPC 11:38
DX: R10.9 Unspecified abdominal pain (principal); G89.29 Other chronic pain; D64.9 Anemia, unspecified
CPT/HCPCS: 74176; 80053; 81001; 83605; 83690; 84703; 85025; 96361; 96374; 96375; 96376; 99285; J2270; J2405; J7030

== ENCOUNTER 2017-04-24 13:39 | Emergency (ER) | payer OTHER ==
[2017-04-24 13:41] VITALS: BP 137/85; PULSE 100; RESP 16; TEMP 98.9; O2SAT 97
[2017-04-24] MEDS ORDERED: GUAISYP4 PO (14:22)
[2017-04-24] MEDS ORDERED: ZITHTAB PO (14:22)
[2017-04-24] MEDS ORDERED: VENTAER INH (14:22)
[2017-04-24] MEDS ORDERED: MEDR4PAK PO (14:22)
--- NOTE | 2017-04-24 14:25 | PD ---
HPI Chief Complaint: Cold / Flu Symptoms Time Seen by Provider: 14:15 Travel History International Travel<30 days: No Contact w/Intl Traveler<30days: No Traveled to known affect area: No History of Present Illness HPI 2 week h/o of cough, prod over last week., initially started with runny nose which has resolved now but cough persists.....no alleviating or aggravating factors.....no assoc factors such as fever/n/v/d/abdpain/cp/ PFSH Past Medical History Hx Anticoagulant Therapy: No Anemia: Yes Arthritis: Yes Asthma: No Blood Disorders: No Bipolar Disorder: Yes Heart Rhythm Problems: No Cancer: No Cardiovascular Problems: No High Cholesterol: No Chemotherapy: No Congestive Heart Failure: No Cerebrovascular Accident: No Diabetes: No Diminished Hearing: No Endocrine: No Gastrointestinal Disorders: Yes GERD: Yes Genitourinary: No Headaches: Yes Hepatitis: No Hiatal Hernia: No Hypertension: No Immune Disorder: No Implanted Vascular Access Dvce: No Kidney Stones: No Musculoskeletal: Yes Neurologic: Yes Psychiatric: No Reproductive: No Respiratory: No Migraines: No Myocardial Infarction: No Radiation Therapy: No Renal Failure: No Seizures: No Ulcer: No Menopausal: No : 2 Para: 2 Past Surgical History Abdominal Surgery: No AICD: No Appendectomy: No Arteriovenous Shunt: No Cardiac Surgery: No Section: Yes (x2) Cholecystectomy: No Ear Surgery: No Endocrine Surgery: No Eye Surgery: No Genitourinary Surgery: No Gynecologic Surgery: Yes () Hysterectomy: No Insulin Pump: No Joint Replacement: No Neurologic Surgery: No Oral Surgery: No Pacemaker: No Thoracic Surgery: No Tonsillectomy: Yes Other Surgery: No Family History Family Hypercholesterolemia: Yes Social History Alcohol Use: Yes (occassionally) Tobacco Use: No Substance Use: No Allergies-Medications (Allergen,Severity, Reaction): Coded Allergies: penicillin G (Unverified Allergy, Severe, RASH, 04/24/17) Sulfa (Sulfonamide Antibiotics) (Unverified Allergy, Intermediate, RASH, 04/24/17) iodine (Unverified Allergy, Intermediate, RASH, 04/24/17) potassium iodide (Unverified Allergy, Intermediate, RASH, 04/24/17) povidone-iodine (Unverified Allergy, Intermediate, RASH, 04/24/17) sodium iodide (Unverified Allergy, Intermediate, RASH, 04/24/17) sodium iodide (Unverified Allergy, Intermediate, RASH, 04/24/17) cyclobenzaprine (Unverified Allergy, Mild, dizzy, 04/24/17) promethazine (Unverified Adverse Reaction, Severe, Arrhythmias, 04/24/17) 3 PRIOR TRIPS TO ED WITH PALPATATIONS AFTER TAKING MED codeine (Unverified Adverse Reaction, Intermediate, NAUSEA, 04/24/17) Reported Meds & Prescriptions Reported Meds & Active Scripts Active Guaifenesin AC Liq (Guaifenesin-Codeine Liq) 100-10 Mg/5 Ml Syrp 10 Ml PO Q6H PRN Ventolin Hfa 18 GM Inh (Albuterol Sulfate) 90 Mcg/Act Aer 2 Puff INH Q4H PRN Medrol Dosepak (Methylprednisolone) 4 Mg Dspk 4 Mg PO DIRECTED Per Pharmacist direction Zithromax Z-Tirso (Azithromycin) 250 Mg Dspk 250 Mg PO DIRECTED 500 MG (2 tabs) day 1, then 1 tab days 2-5. Reported Multiple Vitamin 1 Tab 1 Tab PO DAILY Review of Systems Except as stated in HPI: all other systems reviewed are Neg General / Constitutional: No: Fever Eyes: No: Visual changes HENT: No: Headaches Cardiovascular: No: Chest Pain or Discomfort Respiratory: Positive: Cough, Wheezing Gastrointestinal: No: Abdominal Pain Genitourinary: No: Dysuria Musculoskeletal: No: Pain Skin: No Rash Neurologic: No: Weakness Psychiatric: No: Depression Endocrine: No: Polydipsia Hematologic/Lymphatic: No: Easy Bruising Physical Exam Narrative GENERAL: SKIN: Warm and dry. HEAD: Atraumatic. Normocephalic. EYES: Pupils equal and round. No scleral icterus. No injection or drainage. ENT: No nasal bleeding or discharge. Mucous membranes pink and moist. NECK: Trachea midline. No JVD. CARDIOVASCULAR: Regular rate and rhythm. RESPIRATORY: No accessory muscle use. Clear to auscultation. Breath sounds equal bilaterally. except for light wheezing noted (nl pulse ox) GASTROINTESTINAL: Abdomen soft, non-tender, nondistended. MUSCULOSKELETAL: Extremities without clubbing, cyanosis, or edema. No obvious deformities. NEUROLOGICAL: Awake and alert. No obvious cranial nerve deficits. Motor grossly within normal limits. Five out of 5 muscle strength in the arms and legs. Normal speech. PSYCHIATRIC: Appropriate mood and affect; insight and judgment normal. Data Data Last Documented VS Vital Signs Date Time Temp Pulse Resp B/P (MAP) Pulse Ox O2 Delivery O2 Flow Rate FiO2 04/24/17 14:50 04/24/17 14:48 20 04/24/17 13:41 98.9 100 97 Orders Orders Ed Discharge Order (04/24/17 14:26) MDM Medical Decision Making Medical Screen Exam Complete: Yes Emergency Medical Condition: Yes Medical Record Reviewed: Yes Differential Diagnosis viral syndrome v bacterial bronchitis v pna Narrative Course after examination no e/o unilateral crackles to suggest pna and normal pulse ox noted. due to noted wheezing, will treat as bronchospasm treatment since patient is neg for asthma Diagnosis Primary Impression: Acute bacterial bronchitis Scripts Guaifenesin-Codeine Liq (Guaifenesin AC Liq) 100-10 Mg/5 Ml Syrp 10 ML PO Q6H Y for COUGH, #1 BOTTLE 0 Refills Prov: Michele Lew MD 04/24/17 Albuterol 18 GM Inh (Ventolin Hfa 18 GM Inh) 90 Mcg/Act Aer 2 PUFF INH Q4H Y for SHORTNESS OF BREATH, #1 INHALER 0 Refills Prov: Michele Lew MD 04/24/17 Methylprednisolone Dosepak (Medrol Dosepak) 4 Mg Dspk 4 MG PO DIRECTED, #1 DSPK 0 Refills Per Pharmacist direction Prov: Michele Lew MD 04/24/17 Azithromycin (Zithromax Z-Tirso) 250 Mg Dspk 250 MG PO DIRECTED for Infection, #1 DSPK 0 Refills 500 MG (2 tabs) day 1, then 1 tab days 2-5. Prov: Michele Lew MD 04/24/17 Disposition: 01 DISCHARGE HOME Condition: Stable Michele Lew MD Apr 24, 2017 14:25
== END 2017-04-24 14:51 | disposition home or self-care (01) ==
LOC: NEPD 13:39
DX: J20.8 Acute bronchitis due to other specified organisms (principal); D64.9 Anemia, unspecified
CPT/HCPCS: 99284

== ENCOUNTER 2017-06-22 16:48 | Emergency (ER) | payer OTHER ==
[~2017-06-22] VITALS: Ht 142.2 cm; Wt 56.5 kg
[~2017-06-22 16:48] MED LIST changes: +GUAISYP4 PO; +MEDR4PAK PO; +VENTAER INH; +ZITHTAB PO
[2017-06-22 16:49] VITALS: BP 141/83; PULSE 85; RESP 18; TEMP 99.3; O2SAT 97
[2017-06-22] MEDS ORDERED: TYLE325T PO (17:13)
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
[2017-06-22] MEDS ORDERED: ROBA500T PO (17:31)
[2017-06-22] MEDS ORDERED: MELO15TA20 PO (17:31)
== END 2017-06-22 18:22 | disposition home or self-care (01) ==
LOC: NEPK 16:48
DX: M79.622 Pain in left upper arm (principal); G89.29 Other chronic pain; F31.9 Bipolar disorder, unspecified; K21.9 Gastro-esophageal reflux disease without esophagitis
CPT/HCPCS: 99284

== ENCOUNTER 2017-07-27 17:20 | Emergency (ER) | payer SELFPAY ==
[~2017-07-27] VITALS: Ht 142.2 cm; Wt 52.0 kg
[~2017-07-27 17:20] MED LIST changes: -GUAISYP4 PO; -MEDR4PAK PO; +MELO15TA20 PO; -MULTTAB67 PO; +ROBA500T PO; +TYLE325T PO; -VENTAER INH; -ZITHTAB PO
[2017-07-27 17:22] VITALS: BP 110/55; PULSE 81; RESP 17; TEMP 98.4; O2SAT 99
[2017-07-27] MEDS ORDERED: FLUT1SPR5 EACH NARE (18:38)
[2017-07-27] MEDS ORDERED: AZIT250T3 PO (18:38)
--- NOTE | 2017-07-27 18:42 | PD ---
HPI Chief Complaint: Cold / Flu Symptoms Time Seen by Provider: 18:31 Travel History International Travel<30 days: No Contact w/Intl Traveler<30days: No Traveled to known affect area: No History of Present Illness HPI 52-year-old female presents for evaluation of congestion, chills, sinus pressure. Symptoms started 1 week ago. She denies nausea or vomiting, diarrhea or constipation, abdominal pain, flank pain, dysuria, cough, rash or recent travel, sore throat. No aggravating or alleviating factors. She has no other complaints at this time. PFSH Past Medical History Hx Anticoagulant Therapy: No Anemia: Yes Arthritis: Yes Asthma: No Blood Disorders: No Bipolar Disorder: Yes Heart Rhythm Problems: No Cancer: No Cardiovascular Problems: No High Cholesterol: No Chemotherapy: No Congestive Heart Failure: No Cerebrovascular Accident: No Diabetes: No Diminished Hearing: No Endocrine: No Gastrointestinal Disorders: Yes GERD: Yes Genitourinary: No Headaches: Yes Hepatitis: No Hiatal Hernia: No Hypertension: No Immune Disorder: No Implanted Vascular Access Dvce: No Kidney Stones: No Musculoskeletal: Yes Neurologic: Yes Psychiatric: No Reproductive: No Respiratory: No Migraines: No Myocardial Infarction: No Radiation Therapy: No Renal Failure: No Seizures: No Ulcer: No Menopausal: No : 2 Para: 2 Past Surgical History Abdominal Surgery: No AICD: No Appendectomy: No Arteriovenous Shunt: No Cardiac Surgery: No Section: Yes (x2) Cholecystectomy: No Ear Surgery: No Endocrine Surgery: No Eye Surgery: No Genitourinary Surgery: No Gynecologic Surgery: Yes () Hysterectomy: No Insulin Pump: No Joint Replacement: No Neurologic Surgery: No Oral Surgery: No Pacemaker: No Thoracic Surgery: No Tonsillectomy: Yes Other Surgery: No Family History Family Hypercholesterolemia: Yes Social History Alcohol Use: No Tobacco Use: No Substance Use: No Allergies-Medications (Allergen,Severity, Reaction): Coded Allergies: penicillin G (Unverified Allergy, Severe, RASH, 07/27/17) Sulfa (Sulfonamide Antibiotics) (Unverified Allergy, Intermediate, RASH, ) iodine (Unverified Allergy, Intermediate, RASH, 07/27/17) potassium iodide (Unverified Allergy, Intermediate, RASH, 07/27/17) povidone-iodine (Unverified Allergy, Intermediate, RASH, 07/27/17) sodium iodide (Unverified Allergy, Intermediate, RASH, 07/27/17) sodium iodide (Unverified Allergy, Intermediate, RASH, 07/27/17) cyclobenzaprine (Unverified Allergy, Mild, dizzy, 07/27/17) promethazine (Unverified Adverse Reaction, Severe, Arrhythmias, 07/27/17) 3 PRIOR TRIPS TO ED WITH PALPATATIONS AFTER TAKING MED codeine (Unverified Adverse Reaction, Intermediate, NAUSEA, 07/27/17) Reported Meds & Prescriptions Reported Meds & Active Scripts Active Flonase Nasal [place] (Fluticasone Nasal [place]) 50 Mcg/Act [place] 100 Mcg EACH NARE BID Azithromycin 250 Mg Tab 250 Mg PO DIRECTED Take 2 tabs (500 mg) on day 1 then 1 tab daily x 4 days. Robaxin (Methocarbamol) 500 Mg Tab 500 Mg PO TID Meloxicam 15 Mg Tab 15 Mg PO DAILY Reported Tylenol (Acetaminophen) 325 Mg Tab 325 Mg PO ONCE Review of Systems Except as stated in HPI: all other systems reviewed are Neg Physical Exam Narrative GENERAL: Well-developed well-nourished female in no acute distress SKIN: Warm and dry. HEAD: Atraumatic. Normocephalic. EYES: Pupils equal and round. No scleral icterus. No injection or drainage. ENT: No nasal bleeding or discharge. Mucous membranes pink and moist. There is some tenderness to palpation overlying the maxillary sinuses. No oropharyngeal erythema or exudate. NECK: Trachea midline. No JVD. No lymphadenopathy. CARDIOVASCULAR: Regular rate and rhythm. No murmur appreciated. RESPIRATORY: No accessory muscle use. Clear to auscultation. Breath sounds equal bilaterally. GASTROINTESTINAL: Abdomen soft, non-tender, nondistended. Hepatic and splenic margins not palpable. No CVA tenderness. Data Data Last Documented VS Vital Signs Date Time Temp Pulse Resp B/P (MAP) Pulse Ox O2 Delivery O2 Flow Rate FiO2 07/27/17 17:22 98.4 81 17 110/55 (73) 99 Orders Orders Influenzae A/B Antigen (07/27/17 17:39) Ed Discharge Order (07/27/17 18:39) MDM Medical Decision Making Medical Screen Exam Complete: Yes Emergency Medical Condition: Yes Medical Record Reviewed: Yes Differential Diagnosis Sinusitis, influenza, rhinitis Narrative Course Physical examination is consistent with sinusitis. The patient has numerous allergies including allergies to penicillin based products. She will be treated with a macrolide antibiotic and Flonase. Diagnosis Primary Impression: Sinusitis Additional Instructions: Medication as prescribed. Stay well hydrated and well-nourished. Follow-up with primary care physician as needed and return for any acutely new or worsening symptoms. Med/Other Pt SpecificInfo: Prescription(s) given Scripts Fluticasone Nasal [place] (Flonase Nasal [place]) 50 Mcg/Act [place] 100 MCG EACH NARE BID for Allergies, #1 BOTTLE 0 Refills Prov: Pauly Dutton MD 07/27/17 Azithromycin (Azithromycin) 250 Mg Tab 250 MG PO DIRECTED for Infection, #6 TAB 0 Refills Take 2 tabs (500 mg) on day 1 then 1 tab daily x 4 days. Prov: Pauly Dutton MD 07/27/17 Disposition: 01 DISCHARGE HOME Condition: Stable Reji Shelley Jul 27, 2017 18:42
== END 2017-07-27 18:53 | disposition home or self-care (01) ==
LOC: NEPK 17:20
DX: J32.9 Chronic sinusitis, unspecified (principal)
CPT/HCPCS: 87804; 99283

== ENCOUNTER 2017-11-07 17:12 | Emergency (ER) | payer SELFPAY ==
[~2017-11-07] VITALS: Ht 144.8 cm; Wt 57.0 kg
[~2017-11-07 17:12] MED LIST changes: +AZIT250T3 PO; +FLUT1SPR5 EACH NARE
[2017-11-07 17:35] VITALS: BP 134/90; PULSE 69; RESP 22; TEMP 98.8; O2SAT 100
[2017-11-07 18:07] VITALS: BP 125/69; PULSE 75; RESP 17; TEMP 98.8; O2SAT 100
--- NOTE | 2017-11-07 18:41 | RADRPT ---
EXAM DATE: 11/07/2017 6:35 PM EDT AGE/SEX: 52 years / Female INDICATIONS: Cold symptoms. Cough. CLINICAL DATA: This is the patient's initial encounter. Patient reports that signs and symptoms have been present for 3 days and indicates a pain score of 5/10. MEDICAL/SURGICAL HISTORY: None. None. COMPARISON: [facility] – [place], 05/16/2012. . FINDINGS: PA and lateral views of the chest demonstrate the lungs to be symmetrically aerated without evidence of mass, infiltrate or effusion. The cardiomediastinal contours mildly prominent probably related to scoliosis.. Marked thoracolumbar scoliosis is evident at 35 degrees. Osseous structures are otherwise intact. CONCLUSION: Scoliosis, otherwise negative for infiltrate or failure. Electronically signed by: Sherwin Scott MD 11/07/2017 6:40 PM EDT
--- NOTE | 2017-11-07 18:53 | PD ---
HPI Chief Complaint: Respiratory Symptoms Time Seen by Provider: 18:38 Travel History International Travel<30 days: No Contact w/Intl Traveler<30days: No Traveled to known affect area: No History of Present Illness HPI 52-year-old female with history of bipolar disorder, alcohol dependency, and anemia, presents emergency department for evaluation of cough and chest congestion with sinus congestion worsening over the last week. Patient states she is unable to cough anything up. She states it is difficult to take a deep breath and feels like she is wheezing. She denies any chest pain. She denies any hemoptysis. Denies any recent travel. Patient denies any history of DVT or PE. Patient denies any fever or chills. She has no other symptoms to report at this time. PFSH Past Medical History Hx Anticoagulant Therapy: No Anemia: Yes Arthritis: Yes Asthma: No Blood Disorders: No Bipolar Disorder: Yes Heart Rhythm Problems: No Cancer: No Cardiovascular Problems: No High Cholesterol: No Chemotherapy: No Congestive Heart Failure: No Cerebrovascular Accident: No Diabetes: No Diminished Hearing: No Endocrine: No Gastrointestinal Disorders: Yes GERD: Yes Genitourinary: No Headaches: Yes Hepatitis: No Hiatal Hernia: No Hypertension: No Immune Disorder: No Implanted Vascular Access Dvce: No Kidney Stones: No Musculoskeletal: Yes Neurologic: Yes Psychiatric: No Reproductive: No Respiratory: No Migraines: No Myocardial Infarction: No Radiation Therapy: No Renal Failure: No Seizures: No Ulcer: No ?: Not LMP: october Menopausal: No : 2 Para: 2 Past Surgical History Abdominal Surgery: No AICD: No Appendectomy: No Arteriovenous Shunt: No Cardiac Surgery: No Section: Yes (x2) Cholecystectomy: No Ear Surgery: No Endocrine Surgery: No Eye Surgery: No Genitourinary Surgery: No Gynecologic Surgery: Yes () Hysterectomy: No Insulin Pump: No Joint Replacement: No Neurologic Surgery: No Oral Surgery: No Pacemaker: No Thoracic Surgery: No Tonsillectomy: Yes Other Surgery: No Family History Family Hypercholesterolemia: Yes Social History Alcohol Use: Yes (2 wine coolers couple times a week) Tobacco Use: No Substance Use: No Allergies-Medications (Allergen,Severity, Reaction): Coded Allergies: penicillin G (Unverified Allergy, Severe, RASH, 11/07/17) Sulfa (Sulfonamide Antibiotics) (Unverified Allergy, Intermediate, RASH, ) iodine (Unverified Allergy, Intermediate, RASH, 11/07/17) potassium iodide (Unverified Allergy, Intermediate, RASH, 11/07/17) povidone-iodine (Unverified Allergy, Intermediate, RASH, 11/07/17) sodium iodide (Unverified Allergy, Intermediate, RASH, 11/07/17) sodium iodide (Unverified Allergy, Intermediate, RASH, 11/07/17) cyclobenzaprine (Unverified Allergy, Mild, dizzy, 11/07/17) promethazine (Unverified Adverse Reaction, Severe, Arrhythmias, 11/07/17) 3 PRIOR TRIPS TO ED WITH PALPATATIONS AFTER TAKING MED codeine (Unverified Adverse Reaction, Intermediate, NAUSEA, 11/07/17) Reported Meds & Prescriptions Reported Meds & Active Scripts Active Proair Hfa 8.5 GM Inh (Albuterol Sulfate) 90 Mcg/Act Aer 2 Puff INH Q4HR PRN 108 mcg/actuation Prednisone 50 Mg Tab 50 Mg PO DAILY 5 Days Zithromax Z-Tirso (Azithromycin) 250 Mg Dspk 250 Mg PO DIRECTED 500 MG (2 tabs) day 1, then 1 tab days 2-5. Flonase Nasal [place] (Fluticasone Nasal [place]) 50 Mcg/Act [place] 100 Mcg EACH NARE BID Reported Tylenol (Acetaminophen) 325 Mg Tab 325 Mg PO ONCE Review of Systems Except as stated in HPI: all other systems reviewed are Neg Physical Exam Narrative GENERAL: Well-nourished, well-developed female patient, in no acute distress SKIN: Focused skin assessment warm/dry. HEAD: Normocephalic. EYES: No scleral icterus. No injection or drainage. NECK: Supple, trachea midline. No JVD or lymphadenopathy. CARDIOVASCULAR: Regular rate and rhythm without murmurs, gallops, or rubs. RESPIRATORY: Breath sounds with scattered rhonchi, inspiratory and expiratory wheezes are intermittent equal bilaterally. No accessory muscle use. GASTROINTESTINAL: Abdomen soft, non-tender, nondistended. MUSCULOSKELETAL: No cyanosis, or edema. BACK: Nontender without obvious deformity. No CVA tenderness. Data Data Last Documented VS Vital Signs Date Time Temp Pulse Resp B/P (MAP) Pulse Ox O2 Delivery O2 Flow Rate FiO2 11/07/17 20:49 11/07/17 20:00 99 21 5/29/18 19:15 Room Air 11/07/17 18:07 98.8 75 17 Orders Orders Chest, Pa & Lat (11/07/17 ) Complete Blood Count With Diff (11/07/17 18:56) Influenzae A/B Antigen (11/07/17 18:56) Iv Access Insert/Monitor (11/07/17 18:56) Ecg Monitoring (11/07/17 18:56) Oximetry (11/07/17 18:56) Oxygen Administration (11/07/17 18:56) Sodium Chloride 0.9% Flush (Ns Flush) (11/07/17 19:00) Methylprednisolone So Succ Inj (Solumedr (11/07/17 19:00) Albuterol-Ipratropium Neb (Duoneb Neb) (11/07/17 19:00) Ed Discharge Order (11/07/17 20:42) Labs Laboratory Tests Test 11/07/17 19:45 White Blood Count 7.8 TH/MM3 Red Blood Count 4.79 MIL/MM3 Hemoglobin 12.0 GM/DL Hematocrit 37.7 % Mean Corpuscular Volume 78.8 FL Mean Corpuscular Hemoglobin 25.0 PG Mean Corpuscular Hemoglobin Concent 31.7 % Red Cell Distribution Width 17.9 % Platelet Count 267 TH/MM3 Mean Platelet Volume 8.6 FL Neutrophils (%) (Auto) 53.2 % Lymphocytes (%) (Auto) 28.9 % Monocytes (%) (Auto) 9.5 % Eosinophils (%) (Auto) 7.5 % Basophils (%) (Auto) 0.9 % Neutrophils # (Auto) 4.2 TH/MM3 Lymphocytes # (Auto) 2.3 TH/MM3 Monocytes # (Auto) 0.7 TH/MM3 Eosinophils # (Auto) 0.6 TH/MM3 Basophils # (Auto) 0.1 TH/MM3 CBC Comment DIFF FINAL Differential Comment MDM Medical Decision Making Medical Screen Exam Complete: Yes Emergency Medical Condition: Yes Medical Record Reviewed: Yes Differential Diagnosis Bronchitis versus pneumonia versus reactive airway versus COPD Narrative Course 52-year-old female presents emergency department for evaluation of cough, chest congestion and wheezing. Patient appears nontoxic. Her vital signs are stable. She does have his return x-ray wheeze. She is given DuoNeb treatment and Solu-Medrol. Laboratory Tests Test 11/07/17 19:45 White Blood Count 7.8 TH/MM3 Red Blood Count 4.79 MIL/MM3 Hemoglobin 12.0 GM/DL Hematocrit 37.7 % Mean Corpuscular Volume 78.8 FL Mean Corpuscular Hemoglobin 25.0 PG Mean Corpuscular Hemoglobin Concent 31.7 % Red Cell Distribution Width 17.9 % Platelet Count 267 TH/MM3 Mean Platelet Volume 8.6 FL Neutrophils (%) (Auto) 53.2 % Lymphocytes (%) (Auto) 28.9 % Monocytes (%) (Auto) 9.5 % Eosinophils (%) (Auto) 7.5 % Basophils (%) (Auto) 0.9 % Neutrophils # (Auto) 4.2 TH/MM3 Lymphocytes # (Auto) 2.3 TH/MM3 Monocytes # (Auto) 0.7 TH/MM3 Eosinophils # (Auto) 0.6 TH/MM3 Basophils # (Auto) 0.1 TH/MM3 CBC Comment DIFF FINAL Differential Comment Last Impressions Chest X-Ray 11/07/17 0000 Signed Impressions: CONCLUSION: Scoliosis, otherwise negative for infiltrate or failure. Findings are reviewed. Upon reassessment, patient verbalizes marked improvement in her symptoms. She will be discharged home on azithromycin, short course of oral steroids, and pro-air inhaler. She is encouraged to follow -up with primary care provider and return immediately with acute worsening symptoms. Diagnosis Primary Impression: URI (upper respiratory infection) Qualified Codes: J06.9 - Acute upper respiratory infection, unspecified Referrals: Primary Care Physician Patient Instructions: General Instructions, Upper Respiratory Infection (ED) Departure Forms: Tests/Procedures, Work Release Enter return to work date: November 09, 2017 Additional Instructions: Humidified air may help to alleviate symptoms Follow-up with a primary care provider Return immediately with acute worsening symptoms Med/Other Pt SpecificInfo: Prescription(s) given Scripts Albuterol 8.5 GM Inh (Proair Hfa 8.5 GM Inh) 90 Mcg/Act Aer 2 PUFF INH Q4HR Y for SHORTNESS OF BREATH, #1 INHALER 0 Refills 108 mcg/actuation Prov: Elvira Amador 11/07/17 Prednisone (Prednisone) 50 Mg Tab 50 MG PO DAILY for 5 Days, #5 TAB 0 Refills Prov: Elvira Amador 11/07/17 Azithromycin (Zithromax Z-Tirso) 250 Mg Dspk 250 MG PO DIRECTED for Infection, #1 DSPK 0 Refills 500 MG (2 tabs) day 1, then 1 tab days 2-5. Prov: Elvira Amador 11/07/17 Disposition: 01 DISCHARGE HOME Condition: Stable Elvira Amador November 07, 2017 18:53
[2017-11-07] MEDS ORDERED: SODIUM CHLORIDE 0.9% FLUSH 10 ML FLUSH IVF PRN (19:00)
[2017-11-07] MEDS ORDERED: methylPREDNISolone SOD SUCC 125 MG/2 ML VIAL IV PUSH ONE (19:00)
[2017-11-07 19:15] VITALS: O2SAT 99
[2017-11-07 20:00] VITALS: O2SAT 99
[2017-11-07] MEDS: RESP: ALBUTEROL 2.5 MG/IPRATROPIUM 0.5 MG NEB (SCH) INH ×2 (20:01→20:03)
[2017-11-07 20:30] LABS: AUTOMATED NEUTROPHIL # 4.2 TH/MM3 (1.8-7.7); BASOPHIL # 0.1 TH/MM3 (0-0.2); BASOPHIL % 0.9 % (0.0-2.0); EOSINOPHIL # 0.6 TH/MM3 (0-0.4); EOSINOPHIL % 7.5 % (0.0-4.0); HEMATOCRIT 37.7 % (35.0-46.0); LYMPH % 28.9 % (9.0-44.0); LYMPHOCYTE # 2.3 TH/MM3 (1.0-4.8); MEAN CELL VOLUME 78.8 FL (80.0-100.0); MEAN CORPUSCULAR HGB CONC 31.7 % (32.0-36.0); MEAN PLATELET VOLUME 8.6 FL (7.0-11.0); MONO % 9.5 % (0.0-8.0); MONOCYTE # 0.7 TH/MM3 (0-0.9); NEUT % 53.2 % (16.0-70.0); PLATELET COUNT 267 TH/MM3 (150-450); RED BLOOD COUNT 4.79 MIL/MM3 (4.00-5.30); RED CELL DISTRIBUTION WIDTH 17.9 % (11.6-17.2); WHITE BLOOD COUNT 7.8 TH/MM3 (4.0-11.0)
[2017-11-07] MEDS ORDERED: ZITHTAB PO (20:46)
[2017-11-07] MEDS ORDERED: PRED50 PO (20:46)
[2017-11-07] MEDS ORDERED: ALBUAER3 INH (20:46)
== END 2017-11-07 21:15 | disposition home or self-care (01) ==
LOC: NEPE 17:12
DX: J06.9 Acute upper respiratory infection, unspecified (principal)
CPT/HCPCS: 71046; 85025; 87804; 94640; 94664; 96374; 99284; J2930